=== PATIENT | male | born 1995 | race Two or more races ===

== ENCOUNTER 2017-01-03 16:03 | Emergency (ER) | payer OTHER ==
[2017-01-03] MEDS: NS 0.9% 1000 ML* 3,000 ML IV ONE ×3 (16:50→19:03)
[2017-01-03 17:29] LABS: Hematocrit 49 % (42-52); Hemoglobin 16.1 g/dl (14.0-18.0); Mean Corpuscular HGB Conc 33 g/dl (31-36); Mean Corpuscular Hemoglobin 32 pg (27-31); Mean Corpuscular Volume 95 fL (80-94); Mean Platelet Volume 7 um3 (7.4-10.4); Red Blood Count 5.12 10^6/ul (4.0-5.4); Red Cell Distribution Width 15 % (10.5-15); White Blood Count 6.9 10^3/ul (3.5-10.8)
[2017-01-03 17:43] LABS: ALT 24 U/L (7-52); AST 31 U/L (13-39); Albumin 4.7 g/dL (3.2-5.2); Alkaline Phosphatase 63 U/L (34-104); Anion Gap 10 mmol/L (2-11); Blood Urea Nitrogen 10 mg/dL (6-24); CO2 Carbon Dioxide 29 mmol/L (22-32); Calcium 8.4 mg/dL (8.6-10.3); Chloride 105 mmol/L (101-111); Creatine Kinase 335 U/L (10-223); EGFR African American 147.7 (>60); EGFR Non-African American 114.8 (>60); Globulin 3.1 g/dL (2-4); Glucose 89 mg/dL (70-100); Sodium 144 mmol/L (133-145); Total Protein 7.8 g/dL (6.4-8.9)
[2017-01-03 17:56] LABS: Urine Bilirubin Negative (Negative); Urine Glucose 1+(50 mg/dL) (Negative); Urine Nitrite Negative (Negative)
[2017-01-03 18:11] LABS: Benzodiazepine Urine Screen None Detected (None Detect)
[2017-01-03 18:29] LABS: TSH (Thyroid Stimulating Horm) 1.13 mcIU/mL (0.34-5.60)
[2017-01-03 18:31] LABS: Acetaminophen < 15 mcg/mL; Salicylate < 2.50 mg/dL (<30)
[2017-01-03 18:40] LABS: Alcohol 522 mg/dL (<10)
[2017-01-03] MEDS ORDERED: LORazepam TAB(*) 1 MG PO ONE ×2 (19:15→22:16)
[2017-01-03] MEDS ORDERED: LORazepam TAB(*) 1 MG ONE (19:18)
--- NOTE | 2017-01-03 22:37 | ED ---
John Villarreal Thomas, scribed for Eduard Santillan MD on 01/03/17 at 1630 . Altered Mental Status - HPI Summary HPI Summary: Pt is a 21 y/o M BIB police due to AMS. Pt says that he is detoxifying from alcohol. The last time he used alcohol was today, and he says that he has had little alcohol today. Additionally c/o auditory hallucinations, visual hallucinations, difficulty breathing. The pt says he has SI but denies trying to kill himself. The pt denies use of street drugs. LEVEL 5 CAVEAT: due to being unforthcoming with information. - History Of Current Complaint Chief Complaint: EDAltMentalStatus Stated Complaint: UNRESPONSIVE Time Seen by Provider: 01/03/17 16:27 Hx Obtained From: Patient Hx From Patient Unobtainable Due To: Altered Mental Status - LEVEL 5 CAVEAT: due to being unforthcoming with information. Onset/Duration: Still Present Timing: Constant, Lasting Hours - pt says that he stopped drinking this AM Has Suicidal: Thoughts - Allergies/Home Medications Allergies/Adverse Reactions: Allergies Allergy/AdvReac Type Severity Reaction Status Date / Time No Known Allergies Allergy Verified 01/03/17 19:02 Home Medications: Home Medications Unobtainable [Unobtainable] 01/03/17 [History Confirmed 01/03/17] PMH/Surg Hx/FS Hx/Imm Hx Previously Healthy: No - LEVEL 5 CAVEAT: due to being unforthcoming with information. Infectious Disease History: No Infectious Disease History: Denies: Traveled Outside the [place] in Last 30 Days - Family History Known Family History: Positive: Unknown Family History: LEVEL 5 CAVEAT: due to being unforthcoming with information. - Social History Alcohol Use: Daily Review of Systems - ROS Summary Review of Systems Summary: LEVEL 5 CAVEAT: due to being unforthcoming with information. Respiratory: Other - POS: "difficulty breathing" Psychological: Other - POS: auditory hallucinations, visual halluicinations, SI All Other Systems Reviewed And Are Negative: No Physical Exam - Summary Physical Exam Summary: LEVEL 5 CAVEAT: due to being unforthcoming with information. The patient is well-nourished in no acute distress and in no acute pain. Patient smells like ETOH. Poor hygiene. The skin is warm and dry and skin color reflects adequate perfusion. HEENT: The head is normocephalic and atraumatic. The pupils are dilated, equal , and reactive. The conjunctivae are clear and without drainage. Nares are patent and without drainage. Mouth reveals dry mucous membranes and the throat is without erythema and exudate. The external ears are intact. Neck is supple with full range of motion and non-tender. There are no carotid bruits. There is no neck vein distension. Respiratory: Chest is non-tender. Lungs are clear to auscultation and breath sounds are symmetrical and equal. Hyperventilating on exam. Cardiovascular: Hear is regular rate and rhythm. There is no murmur or rub auscultated. There is no peripheral edema and pulses are symmetrical and equal. Abdomen: The abdomen is soft and non-tender. There are normal bowel sounds heard in all four quadrants and there is no organomegaly palpated. Musculoskeletal: There is no back pain noted. Extremities are non-tender with full range of motion. Capillary refill of 3 seconds. There is no peripheral edema or calf tenderness elicited. Neurological: Patient is alert and oriented to person, place and time. The patient has symmetrical motor strength in all four extremities. Psychiatric: Patient is anxious. Not very forthcoming with information. Triage Information Reviewed: Yes Vital Signs On Initial Exam: Initial Vitals Temp Pulse Resp BP Pulse Ox 99 F 81 16 148/97 97 01/03/17 16:20 01/03/17 16:20 01/03/17 16:20 01/03/17 16:20 01/03/17 16:20 Vital Signs Reviewed: Yes Diagnostics - Vital Signs Vital Signs Temp Pulse Resp BP Pulse Ox 01/03/17 16:20 99 F 81 16 148/97 97 - Laboratory Lab Results: Lab Results 01/03/17 01/03/17 01/03/17 Range/Units 17:19 17:19 17:19 WBC 6.9 (3.5-10.8) 10^3/ul RBC 5.12 (4.0-5.4) 10^6/ul Hgb 16.1 (14.0-18.0) g/dl Hct 49 (42-52) % MCV 95 H (80-94) fL MCH 32 H (27-31) pg MCHC 33 (31-36) g/dl RDW 15 (10.5-15) % Plt Count 287 (150-450) 10^3/ul MPV 7 L (7.4-10.4) um3 Neut % (Auto) 46.5 (38-83) % Lymph % (Auto) 35.7 (25-47) % [place] % (Auto) 16.8 H (1-9) % Eos % (Auto) 0.4 (0-6) % Baso % (Auto) 0.6 (0-2) % Absolute Neuts (auto) 3.2 (1.5-7.7) 10^3/ul Absolute Lymphs (auto) 2.5 (1.0-4.8) 10^3/ul Absolute Monos (auto) 1.2 H (0-0.8) 10^3/ul Absolute Eos (auto) 0 (0-0.6) 10^3/ul Absolute Basos (auto) 0 (0-0.2) 10^3/ul Absolute Nucleated RBC 0.01 10^3/ul Nucleated RBC % 0.1 Sodium 144 (133-145) mmol/L Potassium 4.0 (3.5-5.0) mmol/L Chloride 105 (101-111) mmol/L Carbon Dioxide 29 (22-32) mmol/L Anion Gap 10 (2-11) mmol/L BUN 10 (6-24) mg/dL Creatinine 0.83 (0.67-1.17) mg/dL Est GFR ( Amer) 147.7 (>60) Est GFR (Non-Af Amer) 114.8 (>60) BUN/Creatinine Ratio 12.0 (8-20) Glucose 89 (70-100) mg/dL Lactic Acid 1.9 (0.5-2.0) mmol/L Calcium 8.4 L (8.6-10.3) mg/dL Total Bilirubin 0.30 (0.2-1.0) mg/dL AST 31 (13-39) U/L ALT 24 (7-52) U/L Alkaline Phosphatase 63 (34-104) U/L Total Creatine Kinase 335 H (10-223) U/L Total Protein 7.8 (6.4-8.9) g/dL Albumin 4.7 (3.2-5.2) g/dL Globulin 3.1 (2-4) g/dL Albumin/Globulin Ratio 1.5 (1-3) TSH 1.13 (0.34-5.60) mcIU/mL Urine Color Urine Appearance Urine pH (5-9) Ur Specific [place] (1.010-1.030) Urine Protein (Negative) Urine Ketones (Negative) Urine Blood (Negative) Urine Nitrate (Negative) Urine Bilirubin (Negative) Urine Urobilinogen (Negative) Ur Leukocyte Esterase (Negative) Urine Glucose (Negative) Salicylates < 2.50 (<30) mg/dL Urine Opiates Screen (None Detect) Acetaminophen < 15 mcg/mL Ur Barbiturates Screen (None Detect) Ur Phencyclidine Scrn (None Detect) Ur Amphetamines Screen (None Detect) U Benzodiazepines Scrn (None Detect) Urine Cocaine Screen (None Detect) U Cannabinoids Screen (None Detect) Serum Alcohol 522 H* (<10) mg/dL 01/03/17 01/03/17 Range/Units 17:40 17:40 WBC (3.5-10.8) 10^3/ul RBC (4.0-5.4) 10^6/ul Hgb (14.0-18.0) g/dl Hct (42-52) % MCV (80-94) fL MCH (27-31) pg MCHC (31-36) g/dl RDW (10.5-15) % Plt Count (150-450) 10^3/ul MPV (7.4-10.4) um3 Neut % (Auto) (38-83) % Lymph % (Auto) (25-47) % [place] % (Auto) (1-9) % Eos % (Auto) (0-6) % Baso % (Auto) (0-2) % Absolute Neuts (auto) (1.5-7.7) 10^3/ul Absolute Lymphs (auto) (1.0-4.8) 10^3/ul Absolute Monos (auto) (0-0.8) 10^3/ul Absolute Eos (auto) (0-0.6) 10^3/ul Absolute Basos (auto) (0-0.2) 10^3/ul Absolute Nucleated RBC 10^3/ul Nucleated RBC % Sodium (133-145) mmol/L Potassium (3.5-5.0) mmol/L Chloride (101-111) mmol/L Carbon Dioxide (22-32) mmol/L Anion Gap (2-11) mmol/L BUN (6-24) mg/dL Creatinine (0.67-1.17) mg/dL Est GFR ( Amer) (>60) Est GFR (Non-Af Amer) (>60) BUN/Creatinine Ratio (8-20) Glucose (70-100) mg/dL Lactic Acid (0.5-2.0) mmol/L Calcium (8.6-10.3) mg/dL Total Bilirubin (0.2-1.0) mg/dL AST (13-39) U/L ALT (7-52) U/L Alkaline Phosphatase (34-104) U/L Total Creatine Kinase (10-223) U/L Total Protein (6.4-8.9) g/dL Albumin (3.2-5.2) g/dL Globulin (2-4) g/dL Albumin/Globulin Ratio (1-3) TSH (0.34-5.60) mcIU/mL Urine Color Straw Urine Appearance Clear Urine pH 6.0 (5-9) Ur Specific [place] 1.004 L (1.010-1.030) Urine Protein Negative (Negative) Urine Ketones Negative (Negative) Urine Blood Negative (Negative) Urine Nitrate Negative (Negative) Urine Bilirubin Negative (Negative) Urine Urobilinogen Negative (Negative) Ur Leukocyte Esterase Negative (Negative) Urine Glucose 1+(50 mg/dl) H (Negative) Salicylates (<30) mg/dL Urine Opiates Screen None detected (None Detect) Acetaminophen mcg/mL Ur Barbiturates Screen None detected (None Detect) Ur Phencyclidine Scrn None detected (None Detect) Ur Amphetamines Screen None detected (None Detect) U Benzodiazepines Scrn None detected (None Detect) Urine Cocaine Screen None detected (None Detect) U Cannabinoids Screen Presumptive positive H (None Detect) Serum Alcohol (<10) mg/dL Result Diagrams: 01/03/17 17:19 01/03/17 17:19 Lab Statement: Any lab studies that have been ordered have been reviewed, and results considered in the medical decision making process. - EKG 5628 Cardiac Rate: NL - 98 bpm EKG Rhythm: Sinus Rhythm EKG Interpretation: Some artifacts. No ST elevation Altered Mental Statu Course/Dx - Course Assessment/Plan: Pt is a 21 y/o M BIB police due to AMS. Pt says that he is detoxifying from alcohol. The last time he used alcohol was today, and he says that he has had little alcohol today. Additionally c/o auditory hallucinations, visual hallucinations, difficulty breathing. The pt says he has SI but denies trying to kill himself. The pt denies use of street drugs. LEVEL 5 CAVEAT: due to being unforthcoming with information. EKG reveals no STEMI. Serum alcohol of 522 and presumptive positive for cannabinoids. Pt will be signed out, pending dispo, awaiting EtOH metabolism and MHE. - Diagnoses Discharge Diagnoses: Acute alcohol intoxication, Suicidal ideation, Depressed Discharge - Discharge Plan Condition: Stable Disposition: OTHER Discharge Disposition Comment: Pt will be signed out, pending dispo, awaiting MHE. Referrals: Non Staff,Doctor [Primary Care Provider] - The documentation as recorded by the John ibarra Thomas accurately reflects the service I personally performed and the decisions made by me, Eduard Santillan MD.
[2017-01-04 10:41] VITALS: BP 117/55
[2017-01-04] MEDS ORDERED: LORazepam TAB(*) 1 MG PO ONE ×2 (11:18→15:19)
--- NOTE | 2017-01-04 19:04 | CONSULT ---
Consult Consult: Tawanda Pérez presented to the ED on a previous shift after drinking ETOH. He was found unresponsive by a [facility]. He was medically cleared when he was sobeer and they felt that he was safe to go home. His mother reported that he had never had any problem with self harm. He had a lac on his arm which he attributed to breaking a window. He was discharged in stable condition with a diagnosis of alcohol intoxication.
== END 2017-01-04 19:25 ==
LOC: ED 16:03
DX: F10.129 Alcohol abuse with intoxication, unspecified (principal); F32.9 Major depressive disorder, single episode, unspecified; R45.851 Suicidal ideations; Y90.8 Blood alcohol level of 240 mg/100 ml or more
CPT/HCPCS: 36415; 80053; 80307; 80320; 80329; 81003; 82550; 83605; 84443; 85025; 93005; 96360; 99284; A9270-GY; G0480

== ENCOUNTER → 2017-01-07 16:26 | Emergency (ER) | payer OTHER ==
[~2017-01-07 16:26] MED LIST: Haloperidol INJ IV/IM* 5 MG/ML AMP IV SLOW PU ONE; LORazepam INJ* 2 MG/ML 1 ML VIAL IV ONE; LORazepam INJ* 2 MG/ML 1 ML VIAL IV PUSH ONE; Magnesium Sulfate 2 GM IV* 2 GM/50 ML BAG IVPB ONE; Ondansetron INJ* 2 MG/ML VIAL IV ONE; Thiamine IV* 100 MG, Folic Acid IV* 1 MG, Multiple Vitamin IV ADULT* 10 ML in NS 0.9% 1... IV ONE
[2017-01-07 17:29] LABS: Hematocrit 47 % (42-52); Mean Corpuscular HGB Conc 34 g/dl (31-36); Mean Corpuscular Hemoglobin 33 pg (27-31); Mean Corpuscular Volume 96 fL (80-94); Mean Platelet Volume 7 um3 (7.4-10.4); Red Cell Distribution Width 15 % (10.5-15); White Blood Count 4.1 10^3/ul (3.5-10.8)
[2017-01-07 17:44] LABS: ALT 45 U/L (7-52); AST 66 U/L (13-39); Albumin 4.8 g/dL (3.2-5.2); Alkaline Phosphatase 71 U/L (34-104); Anion Gap 14 mmol/L (2-11); BUN/Creatinine Ratio 5.7 (8-20); Blood Urea Nitrogen 5 mg/dL (6-24); CO2 Carbon Dioxide 24 mmol/L (22-32); Calcium 8.7 mg/dL (8.6-10.3); Chloride 97 mmol/L (101-111); Creatine Kinase 801 U/L (10-223); EGFR Non-African American 107.3 (>60); Glucose 182 mg/dL (70-100); Sodium 135 mmol/L (133-145); Total Protein 7.8 g/dL (6.4-8.9)
[2017-01-07 17:48] LABS: Urine Bilirubin Negative (Negative); Urine Glucose Negative (Negative); Urine Nitrite Negative (Negative)
[2017-01-07 18:01] LABS: Benzodiazepine Urine Screen None Detected (None Detect)
[2017-01-07 18:05] LABS: Acetaminophen < 15 mcg/mL; Salicylate < 2.50 mg/dL (<30)
[2017-01-07 18:08] LABS: Alcohol 552 mg/dL (<10)
--- NOTE | 2017-01-08 00:02 | ED ---
Nya Villarreal Salem, scribed for Eduard Santillan MD on 01/07/17 at 1733 . Substance Abuse/Use - HPI Summary HPI Summary: Patient is a 21 y/o M who presents to the ED requesting detox. He reports hallucinations, but denies any physical pain or recent EtOH consumption. However , he reports intake of 3 gallons of High-gravity beer daily. He denies any substance use. Pt states that he has a hx of EtOH withdrawal and he has been hospitalized for EtOH before. Pt was in the ED last week with an EtOH serum level of 522. NKDA. - History Of Current Complaint Chief Complaint: EDDetoxRequest Stated Complaint: ALCOHOL WITHDRAWAL Time Seen by Provider: 01/07/17 16:57 Hx Obtained From: Patient Onset/Duration of Drug/ETOH Abuse: Hours Ingestion History: Type/Name Of Drug - EtOH. Overdose Characteristics: Oral Timing Of Abuse: Daily Severity Initially: Moderate Severity Currently: Moderate Character: Stuporous Aggravating Factor(s): Nothing Alleviating Factor(s): Nothing Associated Signs And Symptoms: Negative - Allergies/Home Medications Allergies/Adverse Reactions: Allergies Allergy/AdvReac Type Severity Reaction Status Date / Time No Known Allergies Allergy Verified 01/07/17 16:47 PMH/Surg Hx/FS Hx/Imm Hx Psychiatric History: Reports: Hx Substance Abuse Denies: Hx Eating Disorder, Hx of Violent Episodes Against Others - Surgical History Surgery Procedure, Year, and Place: None. Infectious Disease History: No Infectious Disease History: Denies: Traveled Outside the [place] in Last 30 Days - Family History Known Family History: Positive: Other - No depression fhx. Negative: Cardiac Disease - Social History Alcohol Use: Daily Alcohol Amount: pt states 3 gallons daily Substance Use Type: Reports: None Smoking Status (MU): Light Every Day Tobacco Smoker Review of Systems Positive: Other - No physical pain. Positive: Other - Hallucinations. See HPI. All Other Systems Reviewed And Are Negative: Yes Physical Exam - Summary Physical Exam Summary: The patient is well-nourished in no acute distress and in no acute pain. Not alert, but oriented. The skin is warm and dry and skin color reflects adequate perfusion. Decreased skin turgor. HEENT: The head is normocephalic and atraumatic. The pupils are equal and reactive. The conjunctivae are clear and without drainage. Nares are patent and without drainage. Mouth reveals moist mucous membranes and the throat is without erythema and exudate. The external ears are intact. The ear canals are patent and without drainage. The tympanic membranes are intact. Neck is supple with full range of motion and non-tender. There are no carotid bruits. There is no neck vein distension. Respiratory: Chest is non-tender. Lungs are clear to auscultation and breath sounds are symmetrical and equal. Cardiovascular: Heart is regular rhythm, but tachycardic. There is no murmur or rub auscultated. There is no peripheral edema and pulses are symmetrical and equal. Abdomen: The abdomen is soft and non-tender. There are normal bowel sounds heard.. Musculoskeletal: There is no back pain noted. Extremities are non-tender with full range of motion. No motor weakness. Neurological: Patient is alert and oriented to person, place and time. The patient has symmetrical motor strength in all four extremities. Unable to carry out [id number]. Psychiatric: Picking and grapping at things as if he is hallucinating. Pt is having difficulty following commands. Triage Information Reviewed: Yes Vital Signs On Initial Exam: Initial Vitals Pulse BP 90 135/87 01/07/17 16:34 01/07/17 16:34 Vital Signs Reviewed: Yes - Selena Coma Scale Coma Scale Total: 15 Diagnostics - Vital Signs Vital Signs Temp Pulse Resp BP Pulse Ox 01/07/17 17:25 14 01/07/17 17:00 103 97 01/07/17 16:48 106 97 01/07/17 16:40 99.5 F 98 16 128/74 96 01/07/17 16:34 90 135/87 - Laboratory Lab Results: Lab Results 01/07/17 01/07/17 01/07/17 Range/Units 17:20 17:20 17:20 WBC 4.1 (3.5-10.8) 10^3/ul RBC 4.90 (4.0-5.4) 10^6/ul Hgb 16.0 (14.0-18.0) g/dl Hct 47 (42-52) % MCV 96 H (80-94) fL MCH 33 H (27-31) pg MCHC 34 (31-36) g/dl RDW 15 (10.5-15) % Plt Count 216 (150-450) 10^3/ul MPV 7 L (7.4-10.4) um3 Neut % (Auto) 41.4 (38-83) % Lymph % (Auto) 36.8 (25-47) % [place] % (Auto) 20.8 H (1-9) % Eos % (Auto) 0.3 (0-6) % Baso % (Auto) 0.7 (0-2) % Absolute Neuts (auto) 1.7 (1.5-7.7) 10^3/ul Absolute Lymphs (auto) 1.5 (1.0-4.8) 10^3/ul Absolute Monos (auto) 0.9 H (0-0.8) 10^3/ul Absolute Eos (auto) 0 (0-0.6) 10^3/ul Absolute Basos (auto) 0 (0-0.2) 10^3/ul Absolute Nucleated RBC 0 10^3/ul Nucleated RBC % 0 Sodium 135 (133-145) mmol/L Potassium 4.0 (3.5-5.0) mmol/L Chloride 97 L (101-111) mmol/L Carbon Dioxide 24 (22-32) mmol/L Anion Gap 14 H (2-11) mmol/L BUN 5 L (6-24) mg/dL Creatinine 0.88 (0.67-1.17) mg/dL Est GFR ( Amer) 138.0 (>60) Est GFR (Non-Af Amer) 107.3 (>60) BUN/Creatinine Ratio 5.7 L (8-20) Glucose 182 H (70-100) mg/dL Lactic Acid 3.7 H* (0.5-2.0) mmol/L Calcium 8.7 (8.6-10.3) mg/dL Magnesium 2.0 (1.9-2.7) mg/dL Total Bilirubin 0.30 (0.2-1.0) mg/dL AST 66 H (13-39) U/L ALT 45 (7-52) U/L Alkaline Phosphatase 71 (34-104) U/L Total Creatine Kinase 801 H (10-223) U/L Total Protein 7.8 (6.4-8.9) g/dL Albumin 4.8 (3.2-5.2) g/dL Globulin 3.0 (2-4) g/dL Albumin/Globulin Ratio 1.6 (1-3) Urine Color Urine Appearance Urine pH (5-9) Ur Specific [place] (1.010-1.030) Urine Protein (Negative) Urine Ketones (Negative) Urine Blood (Negative) Urine Nitrate (Negative) Urine Bilirubin (Negative) Urine Urobilinogen (Negative) Ur Leukocyte Esterase (Negative) Urine Glucose (Negative) Salicylates < 2.50 (<30) mg/dL Urine Opiates Screen (None Detect) Acetaminophen < 15 mcg/mL Ur Barbiturates Screen (None Detect) Ur Phencyclidine Scrn (None Detect) Ur Amphetamines Screen (None Detect) U Benzodiazepines Scrn (None Detect) Urine Cocaine Screen (None Detect) U Cannabinoids Screen (None Detect) Serum Alcohol 552 H* (<10) mg/dL 01/07/17 01/07/17 Range/Units 17:30 17:30 WBC (3.5-10.8) 10^3/ul RBC (4.0-5.4) 10^6/ul Hgb (14.0-18.0) g/dl Hct (42-52) % MCV (80-94) fL MCH (27-31) pg MCHC (31-36) g/dl RDW (10.5-15) % Plt Count (150-450) 10^3/ul MPV (7.4-10.4) um3 Neut % (Auto) (38-83) % Lymph % (Auto) (25-47) % [place] % (Auto) (1-9) % Eos % (Auto) (0-6) % Baso % (Auto) (0-2) % Absolute Neuts (auto) (1.5-7.7) 10^3/ul Absolute Lymphs (auto) (1.0-4.8) 10^3/ul Absolute Monos (auto) (0-0.8) 10^3/ul Absolute Eos (auto) (0-0.6) 10^3/ul Absolute Basos (auto) (0-0.2) 10^3/ul Absolute Nucleated RBC 10^3/ul Nucleated RBC % Sodium (133-145) mmol/L Potassium (3.5-5.0) mmol/L Chloride (101-111) mmol/L Carbon Dioxide (22-32) mmol/L Anion Gap (2-11) mmol/L BUN (6-24) mg/dL Creatinine (0.67-1.17) mg/dL Est GFR ( Amer) (>60) Est GFR (Non-Af Amer) (>60) BUN/Creatinine Ratio (8-20) Glucose (70-100) mg/dL Lactic Acid (0.5-2.0) mmol/L Calcium (8.6-10.3) mg/dL Magnesium (1.9-2.7) mg/dL Total Bilirubin (0.2-1.0) mg/dL AST (13-39) U/L ALT (7-52) U/L Alkaline Phosphatase (34-104) U/L Total Creatine Kinase (10-223) U/L Total Protein (6.4-8.9) g/dL Albumin (3.2-5.2) g/dL Globulin (2-4) g/dL Albumin/Globulin Ratio (1-3) Urine Color Straw Urine Appearance Clear Urine pH 6.0 (5-9) Ur Specific [place] 1.006 L (1.010-1.030) Urine Protein Negative (Negative) Urine Ketones Negative (Negative) Urine Blood Negative (Negative) Urine Nitrate Negative (Negative) Urine Bilirubin Negative (Negative) Urine Urobilinogen Negative (Negative) Ur Leukocyte Esterase Negative (Negative) Urine Glucose Negative (Negative) Salicylates (<30) mg/dL Urine Opiates Screen None detected (None Detect) Acetaminophen mcg/mL Ur Barbiturates Screen None detected (None Detect) Ur Phencyclidine Scrn None detected (None Detect) Ur Amphetamines Screen None detected (None Detect) U Benzodiazepines Scrn None detected (None Detect) Urine Cocaine Screen None detected (None Detect) U Cannabinoids Screen Presumptive positive H (None Detect) Serum Alcohol (<10) mg/dL Result Diagrams: 01/07/17 17:20 01/07/17 17:20 Diagnostic Studies Comment: Lactic acid: 3.7. Serum alcohol: 552 Lab Statement: Any lab studies that have been ordered have been reviewed, and results considered in the medical decision making process. Course/Dx - Course Course Of Treatment: 21 y/o M presents to the ED requesting EtOH detox. He denies any pain. He received Zofran, Magnesium Sulfate, Ativan, Haldol, and fluids in the ED course. Pt will be DC'd. - Diagnoses Differential Diagnosis/HQI/PQRI: Positive: Alcohol Abuse, Alcohol Withdrawal, Metabolic Disorder Provider Diagnoses: Acute alcohol intoxication Discharge - Discharge Plan Condition: Stable Disposition: OTHER Discharge Disposition Comment: Sign out to Dr. Lopez. Referrals: Non Staff,Doctor [Primary Care Provider] - The documentation as recorded by the Nya ibarra Salem accurately reflects the service I personally performed and the decisions made by me, Eduard Santillan MD.
[2017-01-08 12:04] VITALS: BP 129/84
== END ==
LOC: ED 16:26
DX: F10.129 Alcohol abuse with intoxication, unspecified (principal); R44.3 Hallucinations, unspecified; F17.210 Nicotine dependence, cigarettes, uncomplicated
CPT/HCPCS: 36415; 80053; 80307; 80320; 80329; 81003; 82550; 83605; 83735; 85025; 96365; 96375; 99284; G0480; J1630; J2060; J2405

== ENCOUNTER 2017-01-11 01:02 | Emergency (ER) | payer OTHER ==
[2017-01-11] MEDS ORDERED: NS 0.9% 1000 ML* 1,000 ML IV ONE (01:37)
[2017-01-11] MEDS ORDERED: Ondansetron INJ* 2 MG/ML VIAL IV ONE ×2 (01:37→09:05)
--- NOTE | 2017-01-11 01:44 | ED ---
Substance Abuse/Use - HPI Summary HPI Summary: 21 male presents to ED via EMS intoxicated however requesting detox. He was picked up at [facility] after going in and asking for help. Patient is very difficult to obtain a history. Is alert and oriented but very slow to answer questions. States he was withdrawing and having delirium tremens which is why he decided to have "a drink" tonight. Patient was seen twice before this in the past week with same symptoms and requests. Denies substance abuse. Denies known PMHx. Admits to nausea. Known ETOH abuse. Last visit BA of 550. Denies any pain or complaints at this time. Denies abuse, falls and recent seizures. - History Of Current Complaint Chief Complaint: EDDetoxRequest Stated Complaint: NAUSEA/VOMITING Time Seen by Provider: 01/11/17 01:17 Hx Obtained From: Patient Ingestion History: Type/Name Of Drug - alchohol, unknown Overdose Characteristics: Oral Timing Of Abuse: Daily Severity Initially: Moderate Severity Currently: Moderate Character: Depressed, Stuporous Associated Signs And Symptoms: Hallucinating, Delirium Tremors - per patient, Nausea Related Hx: Drug/Alcohol Last Used @ - states last alcohol use was today, Prior Drug Abuse Counseling/Admission - Allergies/Home Medications Allergies/Adverse Reactions: Allergies Allergy/AdvReac Type Severity Reaction Status Date / Time No Known Allergies Allergy Verified 01/07/17 16:47 PMH/Surg Hx/FS Hx/Imm Hx Endocrine/Hematology History: Denies: Hx Diabetes Cardiovascular History: Denies: Hx Hypertension Respiratory History: Denies: Hx Asthma Psychiatric History: Reports: Hx Substance Abuse Denies: Hx Eating Disorder, Hx of Violent Episodes Against Others - Surgical History Surgery Procedure, Year, and Place: None. - Immunization History Immunizations Up to Date: Yes Infectious Disease History: Denies: Traveled Outside the [place] in Last 30 Days - Family History Known Family History: Positive: Unknown, Other - No depression fhx. Negative: Cardiac Disease Family History: LEVEL 5 CAVEAT: due to being unforthcoming with information. - Social History Alcohol Use: Daily Alcohol Amount: pt states 3 gallons daily Substance Use Type: Reports: None Smoking Status (MU): Light Every Day Tobacco Smoker Review of Systems - ROS Summary Review of Systems Summary: limited due to patient unforthcoming with information Constitutional: Negative Cardiovascular: Negative Respiratory: Negative Positive: Nausea Skin: Negative Neurological: Negative Positive: Other - hallucinations All Other Systems Reviewed And Are Negative: Yes Physical Exam Triage Information Reviewed: Yes Vital Signs On Initial Exam: HR: 128 Resp: 23 BP: 103/58 Temp: 97.3 O2: 94 tachycardia noted. Vital Signs Reviewed: Yes Appearance: Positive: Well-Appearing, No Pain Distress, Well-Nourished Skin: Positive: Warm, Skin Color Reflects Adequate Perfusion, Dry. Negative: Soft Head/Face: Positive: Normal Head/Face Inspection, Other - scrape noted on bridge of nose Eyes: Positive: Normal, EOMI, SHELLI, Conjunctiva Clear ENT: Positive: Normal ENT inspection, Hearing grossly normal Neck: Positive: Supple, Nontender Respiratory/Lung Sounds: Positive: Clear to Auscultation, Breath Sounds Present. Negative: Decreased Breath Sounds, Rales, Rhonchi, Stridor Cardiovascular: Positive: Normal, RRR, Pulses are Symmetrical in both Upper and Lower Extremities, Tachycardia. Negative: Murmur, Rub Abdomen Description: Positive: Nontender, Soft Bowel Sounds: Positive: Present Musculoskeletal: Positive: Normal, Strength/ROM Intact Neurological: Positive: Sensory/Motor Intact, Alert, Oriented to Person Place, Time - did not know what day it is. Negative: Finger to Nose Psychiatric: Positive: Depressed, Other - unforthcoming with information when asked questions, repeatedly had to ask to get an answer. staring into space AVPU Assessment: Alert - Selena Coma Scale Best Eye Response: 4 - Spontaneous Best Motor Response: 6 - Obeys Commands Best Verbal Response: 5 - Oriented Diagnostics - Laboratory Result Diagrams: 01/11/17 02:00 01/11/17 02:00 Lab Statement: Any lab studies that have been ordered have been reviewed, and results considered in the medical decision making process. Course/Dx - Course Course Of Treatment: labs were drawn. u/a and given fluids and zofran. patient was signed out to Dr Sparrow at 2:30am for further treatment and disposition. - Diagnoses Differential Diagnosis/HQI/PQRI: Positive: Acute Psychosis, Alcohol Abuse, Alcohol Withdrawal, Delirium Tremens Provider Diagnoses: Alcohol intoxication Discharge - Discharge Plan Condition: Stable Disposition: OTHER Discharge Disposition Comment: signed out to Dr Sparrow at 2:30am Referrals: Non Staff,Doctor [Primary Care Provider] -
[2017-01-11 02:14] LABS: Hematocrit 47 % (42-52); Hemoglobin 15.9 g/dl (14.0-18.0); Mean Corpuscular HGB Conc 34 g/dl (31-36); Mean Corpuscular Hemoglobin 33 pg (27-31); Mean Corpuscular Volume 97 fL (80-94); Mean Platelet Volume 8 um3 (7.4-10.4); Red Blood Count 4.86 10^6/ul (4.0-5.4); Red Cell Distribution Width 14 % (10.5-15); White Blood Count 9.4 10^3/ul (3.5-10.8)
[2017-01-11 02:15] LABS: Add Diff/Slide Review? Slide Review Added; Comments Flag Yes
[2017-01-11 02:25] LABS: Acetaminophen < 15 mcg/mL; Salicylate < 2.50 mg/dL (<30)
[2017-01-11 02:26] LABS: ALT 61 U/L (7-52); AST 71 U/L (13-39); Albumin 4.6 g/dL (3.2-5.2); Alkaline Phosphatase 74 U/L (34-104); Anion Gap 13 mmol/L (2-11); BUN/Creatinine Ratio 10.9 (8-20); Blood Urea Nitrogen 10 mg/dL (6-24); CO2 Carbon Dioxide 29 mmol/L (22-32); Calcium 8.6 mg/dL (8.6-10.3); Chloride 90 mmol/L (101-111); EGFR African American 131.1 (>60); Globulin 3.1 g/dL (2-4); Glucose 222 mg/dL (70-100); Potassium 3.4 mmol/L (3.5-5.0); Sodium 132 mmol/L (133-145); Total Protein 7.7 g/dL (6.4-8.9)
[2017-01-11 02:35] LABS: TSH (Thyroid Stimulating Horm) 0.54 mcIU/mL (0.34-5.60)
[2017-01-11 02:36] LABS: Alcohol 518 mg/dL (<10)
[2017-01-11] MEDS ORDERED: Ondansetron TAB* 4 MG PO ONE (05:39)
[2017-01-11] MEDS ORDERED: Ondansetron ODT TAB* 4 MG ONE (05:40)
[2017-01-11] MEDS ORDERED: Thiamine IV* 100 MG, Folic Acid IV* 1 MG, Multiple Vitamin IV ADULT* 10 ML in NS 0.9% 1... IV ONE (09:01)
[2017-01-11 09:22] LABS: Magnesium 2.1 mg/dL (1.9-2.7)
[2017-01-11] MEDS ORDERED: LORazepam TAB(*) 1 MG PO ONE (09:45)
[2017-01-11 11:34] LABS: Urine Bacteria Absent (Absent); Urine Bilirubin Negative (Negative); Urine Glucose 1+(50 mg/dL) (Negative); Urine Nitrite Negative (Negative)
[2017-01-11 11:46] LABS: Benzodiazepine Urine Screen None Detected (None Detect)
[2017-01-11 16:40] VITALS: BP 126/78
== END 2017-01-11 16:40 | disposition home or self-care (01) ==
LOC: ED 01:02
DX: F10.129 Alcohol abuse with intoxication, unspecified (principal)
CPT/HCPCS: 36415; 80053; 80307; 80320; 80329; 81003; 81015; 83735; 84443; 85025; 96374; 96375; 99282; A9270-GY; G0480; J2405